=== PATIENT | female | born 1990 | race American Indian/Alaskan Native ===

== ENCOUNTER 2016-09-12 23:41 | Inpatient (IN) | payer OTHER, MEDICAID ==
[~2016-09-12 23:41] MED LIST: Betamethasone Acetate/Betamethasone Sod Phosphate 30 MG/5 ML MDV IM ONE
[2016-09-13] MEDS ORDERED: Lactated Ringers 1,000 ML IV SCH (11:15)
[2016-09-13] MEDS ORDERED: Magnesium Sulfate/Water 20 GM in Premix Bag 1 BAG IV SCH (11:15)
[2016-09-13] MEDS: Ferrous Sulfate 325 MG Tab PO SCH ×2 (14:09→22:06)
[2016-09-13] MEDS: Prenatal Multivitamin with Calcium/Folic Acid/Iron Tab PO SCH (14:09)
[2016-09-13] MEDS: Ibuprofen 800 MG Tab PO PRN (14:09)
[2016-09-13] MEDS: Docusate Sodium 100 MG Cap PO PRN (14:09)
--- NOTE | 2016-09-13 15:47 | PN ---
DATE: 09/13/2016 LOCATION: [facility]. HISTORY OF PRESENT ILLNESS: The patient is day 1 after a precipitous vaginal delivery of roughly 34 weeks' gestational age with preeclampsia. She is on magnesium seizure prophylaxis. Mom and baby are both doing well. She reports her lochia is minimal. PHYSICAL EXAMINATION: VITAL SIGNS: The patient is afebrile. Blood pressure 134 to 196/72 to 94. Last blood pressure was normal. Heart rate 57 to 74, respiratory rate 20 to 24. O2 sat 95% to 99%. Urine output was 1400 overnight, which is quite adequate. ABDOMEN: The patient's fundus is firm below the umbilicus. EXTREMITIES: No tenderness. No edema. LABORATORY DATA: Prior to delivery, white count was 11.3, hemoglobin 8.0; therefore, anemia, and platelets 312. She did have a magnesium level drawn this morning at 6 a.m., which was 4.5. Protein-creatinine ratio was 1.76, which is still elevated consistent with her preeclampsia. Her RPR is negative. HIV and hepatitis are still pending. GBS is only a preliminary report so far. ASSESSMENT AND PLAN: day 1, status post vaginal delivery at roughly 34 weeks' gestational age with preeclampsia on magnesium seizure prophylaxis. I do want to continue care, continue the magnesium at 2 g an hour as well as leave the Bryant in place for good urine output measurements. I will DC both of those at midnight if her blood pressures are still improving. I would like to start iron b.i.d. due to the anemia, also repeat a CBC in the morning. We will continue the magnesium levels at noon, 6 p.m., and at midnight tonight. But again, this is doing well and is still at [facility] with mother. MODL /[id number] BRONWYN
[2016-09-14] MEDS: Prenatal Multivitamin with Calcium/Folic Acid/Iron Tab PO SCH (09:06)
[2016-09-14] MEDS: Ferrous Sulfate 325 MG Tab PO SCH ×2 (09:06→18:00)
[2016-09-14] MEDS: Docusate Sodium 100 MG Cap PO PRN ×2 (09:06→22:43)
[2016-09-14] MEDS: Ibuprofen 800 MG Tab PO PRN ×2 (09:06→18:01)
--- NOTE | 2016-09-14 15:36 | PN ---
DATE: 09/14/2016 The patient is day 2, status post vaginal delivery approximately 34 weeks gestational age. The patient did have preeclampsia, she is now status post magnesium seizure prophylaxis. This morning her and baby are both doing well. Lochia is minimal. The patient's blood pressures through the night have ranged from 153 to 176 over 85 to 94 but last blood pressure was improved to 153/85. Urine output was good. Respiratory rate 16, O2 sat 99%. Heart rate 63 to 80, and temp 36.8. The patient's fundus is firm below the umbilicus. Extremities have no tenderness, no edema. The patient's pre-delivery hemoglobin was 8.0 and hemoglobin this morning is down to 7.5. White count 18.2, but she did receive 1 dose of betamethasone. Her platelets are normal at 364. Her highest magnesium level was 5.9 last night at 6 p.m., and then the magnesium was turned off roughly about 11 PM and her magnesium level is already dropping. ASSESSMENT AND PLAN: day 2, status post vaginal delivery at roughly 34 weeks gestational age with severe preeclampsia status post magnesium seizure prophylaxis. The patient's group B strep was negative. Hep B and HIV are still pending. She is rubella nonimmune. RPR is negative and we know her blood type is O positive. Due to continued elevated blood pressures and just discontinuing magnesium very late last night, I wanted to monitor through the day to make sure that her blood pressures normalized and she does not need blood pressure medication. The is with her and likely both will be discharged tomorrow. [facility] /[id number] MTDD
[2016-09-15] MEDS: Ibuprofen 800 MG Tab PO PRN (04:26)
--- NOTE | 2016-09-15 08:21 | PCM.DCSUM1 ---
Discharge Summary - Hospital Course Free Text/Narrative:: 26-year-old female presented in active labor at 34w5d (by ultrasound done earlier in the week). No care prior to the past week. She had been evaluated for elevated BP but had not yet developed preeclampsia. She delivered a viable female with Apgars of 7 and 8 at 1 and 5 minutes respectively. No complications were noted. - Discharge Data Discharge Date: 09/15/16 Discharge Disposition: Home, Self-Care 01 Condition: Good - Patient Summary/Data Operative Procedure(s) Performed: None Complications: None Consults: None Labs Pending at D/C: None Recommended Follow-up Testing/Procedures: None Planned Operative Procedure(s) after DC: None Hospital Course: Unremarkable course. Vaginal bleeding has been appropriate. She is tolerating a general diet, urinating and passing gas. She is bottle feeding. No clinical signs of anemia. - Patient Instructions Diet: Usual Diet as Tolerated Activity: As Tolerated, No Lifting Over 20 Pounds Driving: May Drive Today Showering/Bathing: May Shower Notify Provider of: Fever, Increased Pain, Nausea and/or Vomiting - Discharge Plan Home Medications: Home Meds Acetaminophen [Tylenol] 650 mg PO Q4H PRN #60 tablet 11/17/13 [Rx] Vit with Ca/FA/Iron [ Plus Iron] 1 each PO DAILY #30 tablet [Rx] metroNIDAZOLE [Flagyl] 500 mg PO Q12H 09/13/16 [History] Docusate Sodium [Colace] 100 mg PO BID PRN #0 cap 09/15/16 [Rx] Ferrous Sulfate 325 mg PO BIDMEALS tablet 09/15/16 [Rx] Ibuprofen [IJD: Ibuprofen] 800 mg PO Q8H PRN #0 tablet 09/15/16 [Rx] Referrals: Abrahan Alvarado MD [Physician] - (6 weeks) - Discharge Summary/Plan Comment DC Time >30 min.: No Discharge Summary/Plan Comment: Discharge home today. Follow-up in [address] Alvarado. - General Info Date of Service: 09/15/16 Subjective Update: PPD#2 after . Patient is doing well and has no complaints. Eating and drinking well. No dizziness or lightheadedness. Tolerating general diet. Urinating without difficulty. Passing gas. No concerns per patient or nursing. Functional Status: Reports: pain controlled, tolerating diet, ambulating, urinating. Denies: new symptoms - Review of Systems General: Reports: No Symptoms HEENT: Reports: no symptoms Pulmonary: Reports: no symptoms Cardiovascular: Reports: No Symptoms Gastrointestinal: Reports: No symptoms Genitourinary: Reports: no symptoms Musculoskeletal: Reports: no symptoms Skin: Reports: no symptoms Neurological: Reports: No Symptoms - Patient Data Weight - Most Recent: 111.13 kg Med Orders - Current: Current Medications Docusate Sodium (Colace) 100 mg PO BID PRN PRN Reason: Constipation Last Admin: 09/14/16 22:43 Dose: 100 mg Ferrous Sulfate (Ferrous Sulfate) 325 mg PO BIDMEALS [facility] Last Admin: 09/14/16 18:00 Dose: 325 mg Lactated Ringer's (Ringers, Lactated) 1,000 mls @ 100 mls/hr IV ASDIRECTED [facility] Magnesium Sulfate 20 gm/ (Premix) 500 mls @ 50 mls/hr IV .Q10H [facility] Last Admin: 09/13/16 12:21 Dose: 50 mls/hr Ibuprofen (Motrin) 800 mg PO Q8H PRN PRN Reason: Pain (moderate 4-6) Last Admin: 09/15/16 04:26 Dose: 800 mg Prenat Multivit/[place]/Iron/Folic Ac ( Plus Iron) 1 each PO WITHBREAKFAST [facility] Last Admin: 09/14/16 09:06 Dose: 1 each - Exam General: Reports: alert, oriented Lungs: Reports: Clear to auscultation, Normal respiratory effort Cardiovascular: Reports: Regular Rate, Regular Rhythm, No Murmurs Abdomen: Reports: soft, no tenderness, no distension, other (Uterus firm at 2 cm below umbilicus) Extremities: Reports: no edema Skin: Reports: warm, dry *Q Meaningful Use (DIS) - VTE *Q VTE Criteria *Q: - Stroke *Q Stroke Criteria *Q: - AMI *Q AMI Criteria *Q:
--- NOTE | 2016-09-15 09:50 | HP ---
The patient was admitted on 09/12/2016 at [facility]. HISTORY OF PRESENT ILLNESS: The patient is a 26-year-old, G6, P5, who was seen yesterday on Labor and Delivery. She presented with no care and was ruled out for labor and ruled out for preeclampsia. Ultrasound at that time put this patient at roughly 34 weeks' gestational age. The patient was started on labetalol 100 mg b.i.d. and was sent home with a 24-hour urine. The patient's labs were also done. The patient returned earlier today when NST was reactive and reassuring, blood pressure was normal now on labetalol 100 mg b.i.d. and the patient was sent home while we were awaiting the 24-hour urine results and then later on this evening, the patient did start to have severe contractions and arrived on Labor and Delivery in full labor, really unsure if she had lost fluid or not. No vaginal bleeding though, good movement. The 24-hour urine was originally reported as 274 mg of protein. However, while we were delivering the infant it was addended to be about 4.1 grams. Therefore, definitely preeclampsia. OBSTETRIC HISTORY: She has had five vaginal deliveries and had a history of preeclampsia. PAST MEDICAL HISTORY: Negative. PAST SURGICAL HISTORY: Negative. 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 ALLERGIES: The patient has no known drug allergies. LABORATORY DATA: labs that have come back so far yesterday, white count was 7.5, hemoglobin is low at 8.1, and the patient's blood type is O positive from previous . The patient is rubella nonimmune, RPR negative. Hep B, hep C, gonorrhea and chlamydia are still pending. GBS is still pending. UDS was negative yesterday. An ultrasound yesterday did show a cephalic , 34 weeks and 5 days. She did have an STEFANIE of 5.4, therefore, borderline oligohydramnios. The 24-hour urine was addended to read 4.1 grams. The patient arrived on Labor and Delivery and the labor nurse immediately checked her since she was quite uncomfortable. She was already 5-6 cm. The EFM tried to be applied and it was difficult to get a heart tracing, therefore I did apply an FSE. There were definitely heart tones but by that point in time, the patient was just an anterior lip, and because it was so hard to trace the infant we had the patient push past that anterior lip. Please see the delivery note for further details there. She was given 1 dose of betamethasone stat prior to delivery of the infant. ASSESSMENT AND PLAN: A 26-year-old, G6, P5, at roughly 34 weeks' gestational age, still awaiting labs. The patient was given betamethasone stat. We did have a precipitous vaginal delivery and then after I had the addended 24 hour urine, the patient was started on magnesium seizure prophylaxis at least for the first 24 hours . [facility] /[id number] BRONWYN
--- NOTE | 2016-09-15 10:50 | DEL ---
DATE: 09/12/2016 PREDELIVERY DIAGNOSIS: This is an individual with no care, seen yesterday and diagnosed with borderline oligohydramnios at roughly 34 weeks gestational age, also being ruled out for preeclampsia who was admitted in fulminant labor. PROCEDURE: Normal spontaneous vaginal delivery. FINDINGS: There was cephalic viable , 5 pounds 12 ounces. scores 7 and 9. No lacerations. ESTIMATED BLOOD LOSS: Within normal limits for vaginal delivery. PROCEDURE IN DETAIL: The patient had been seen earlier that day when she did turn in her 24 hour urine. NST at that time was reactive and reassuring and blood pressures had improved on labetalol 100 mg b.i.d. Therefore, we were still awaiting the 24-hour urine results when she arrived in Labor and Delivery in fulminant labor. The patient was already 5-6 cm by the labor and delivery nurse exam, very uncomfortable. She was given 1 dose of betamethasone. She was unfortunately still GBS unknown, but no time to start antibiotics. It was difficult to auscultate the heart tones, therefore scalp electrode was placed. The definitely still had a good heart beat. She progressed to complete within a few minutes and pushed the infant out with just 1 contraction. The cord was cut and clamped. The was handed off to the waiting Labor and Delivery nurses who were prepared for this possible premature infant. The cord blood was collected. The placenta was then delivered intact without any difficulty. The IV had been established by that time, therefore third stage Pitocin was given. There were no lacerations and the blood loss was normal for vaginal delivery. 's scores were 7 and 9 and the infant weighing 5 pounds 12 ounces. By the time we had delivered the patient, a 24- hour urine had come back addended at over 4 g of protein, therefore she was started on magnesium seizure prophylaxis due to her diagnosis of preeclampsia. Overall mom and baby were both doing well. [facility] /[id number] BRONWYN
== END 2016-09-15 10:00 | disposition home or self-care (01) | DRG 775 ==
LOC: DL.OB 23:41 → UNDOADMIN 09-13 08:00
PROVIDERS: ADMIT Obstetrics & Gynecology; ATTEND Obstetrics & Gynecology
PROC: 10E0XZZ Delivery of Products of Conception, External Approach (ICD-10-PCS; principal; 2016-09-13)
DX: O62.3 Precipitate labor (principal); O14.14 Severe pre-eclampsia complicating childbirth; O41.00X0 Oligohydramnios, unspecified trimester, not applicable or unspecified; Z3A.34 34 weeks gestation of pregnancy; Z37.0 Single live birth; O09.31 Supervision of pregnancy with insufficient antenatal care, first trimester; O09.32 Supervision of pregnancy with insufficient antenatal care, second trimester; O09.33 Supervision of pregnancy with insufficient antenatal care, third trimester
CPT/HCPCS: 36415; 51702; 82570; 83735; 84156; 85025; 85027; A9270-GY; J0702; J2590; J3475; J7120

== ENCOUNTER 2020-03-14 20:22 | Emergency (ER) | payer MEDICAID ==
[2020-03-14] MEDS ORDERED: Magnesium Citrate Solution 296 ML Bottle PO ONE (20:23)
[2020-03-14 20:32] VITALS: BP 146/78; PULSE 105
[2020-03-14] MEDS ORDERED: Iopamidol 612 MG/ML 100 ML Bottle IVPUSH ONE (20:57)
--- NOTE | 2020-03-14 21:02 | EDM.PDOC ---
<Antonio Cody - Last Filed: 03/14/20 22:43> ED HPI GENERAL MEDICAL PROBLEM - General Chief Complaint: Abdominal Pain Stated Complaint: LOWER RIGHT ABDOMINAL PAIN Time Seen by Provider: 03/14/20 20:45 Source of Information: Reports: Patient History Limitations: Reports: No Limitations - History of Present Illness INITIAL COMMENTS - FREE TEXT/NARRATIVE: Patient presents to the ED with complaints of right lower quadrant abdominal pain. Pain is described as sharp, currently rated 7/10. Onset was over the last couple days. Pain worsens with movement and improves with rest. 10/10 at its worst. There have been times when pain has not been noticeable. Seems to be better if she lies down. She has been able to work and get along with daily activities. Took a warm bath earlier which seemed to provide relief. She has not tried any OTC analgesics. Patient reports a period last week where she went four days without a bowel movement. She started taking fiber and has had a BM daily for the last few days including today. BMs have been soft, unformed, denies any blood in the stool. Last menstrual period was two weeks ago. She is sexually active, not on control or using any condoms. Grand multiparous with 8 children. She denies any vaginal bleeding. No urinary complaints, denies dysuria or hematuria. She does endorse some pain in the right flank. There has been no fever. No previous surgeries in the past. 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: Other (see below) (warm bath) Right Lower Abdomen Pain Score (Numeric/FACES): 6 - Related Data Allergies Allergy/AdvReac Type Severity Reaction Status Date / Time No Known Allergies Allergy Verified 03/14/20 20:27 Home Meds: Home Meds Magnesium Citrate [Citrate of Magnesia] 296 ml PO ONETIME #1 bottle 03/14/20 [Rx] Past Medical History - Past Health History Medical/Surgical History: Denies Medical/Surgical History HEENT History: Reports: None Cardiovascular History: Reports: Other (See Below) Other Cardiovascular History: Preeclampsia with prior Gastrointestinal History: Reports: None Genitourinary History: Reports: None NAPHTHALENE OPERATOR History: Reports: , Other (See Below) Other NAPHTHALENE OPERATOR History: History of preeclampisa and deliveries. 09/11/07- delivery at 36 weeks for preeclampsia with severe features. 02/18/10- term delivery, preeclampsia. 05/25/12- term delivery, preeclampsia. 11/15/13- term delivery. 12/01/14- 36w1d, preeclampsia with severe features. 09/12/16- 34w5d, preeclampsia with severe features. 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 - Recreational Drug Use Recreational Drug Use: Yes - Sexual History Sexual History: Reports: Sexually Active (no contraceptive use) ED ROS GENERAL - Review of Systems Review Of Systems: See Below Constitutional: Denies: Fever, Chills, Fatigue HEENT: Denies: Throat Pain Respiratory: Denies: Shortness of Breath, Cough Cardiovascular: Denies: Chest Pain, Palpitations GI/Abdominal: Reports: Abdominal Pain, Constipation. Denies: Diarrhea, Hematochezia, Melena, Nausea, Vomiting : Reports: Flank Pain. Denies: Dysuria, Hematuria Skin: Denies: Rash ED EXAM, GI/ABD - Physical Exam Exam: See Below Exam Limited By: No Limitations General Appearance: Alert, WD/WN, No Apparent Distress Eyes: Bilateral: Normal Appearance Throat/Mouth: Normal Voice, No Airway Compromise Head: Atraumatic, Normocephalic Respiratory/Chest: No Respiratory Distress, Lungs Clear, Normal Breath Sounds, No Accessory Muscle Use Cardiovascular: Normal Peripheral Pulses, Regular Rate, Rhythm, No Edema, No Murmur, No Rub GI/Abdominal Exam: Normal Bowel Sounds, Soft, No Distention, No Mass, Tender Back Exam: Normal Inspection, CVA Tenderness (R). No: CVA Tenderness (L), Paraspinal Tenderness, Vertebral Tenderness Extremities: Normal Inspection, No Pedal Edema Neurological: Alert, Oriented, Normal Cognition Psychiatric: Normal Affect, Normal Mood Skin Exam: Warm, Dry, Intact, Normal Color, No Rash Course - Radiology Interpretation Free Text/Narrative:: Per radiology report: Fluid in small bowel without bowel wall thickening. Probable degenerating right ovarian cyst. Normal appendix. No acute findings. CT Results Date: 03/14/20 CT Results Time: 20:56 - Re-Assessments/Exams Free Text/Narrative Re-Assessment/Exam: 03/14/20 21:00 Patient updated with lab results. Mild elevation in WBC, chronic anemia at baseline. Mildly elevated transaminases and alk phos, lactic acid WNL. 5-10 WBC on UA, nitrite negative. Urine sent for culture. No clear indication of etiology of patient's pain. Recommended CT scan of the abdomen and pelvis. Patient is agreeable with the plan. 03/14/20 22:[address] results. Small right ovarian cyst, large stool burden, negative appendix. Fluid within the bowel without bowel wall thickening. Patient reassured regarding no acute findings on abdominal imaging. She is relieved with this news. Discussed management of constipation with mag citrate. She feels comfortable discharging home at this time. Return precautions reviewed. Departure - Departure Time of Disposition: 22:00 Disposition: Home, Self-Care 01 Condition: Good Clinical Impression: Constipation Qualifiers: Constipation type: unspecified constipation type Qualified Code(s): K59.00 - Constipation, unspecified - Discharge Information *PRESCRIPTION DRUG MONITORING PROGRAM REVIEWED*: Not Applicable *COPY OF PRESCRIPTION DRUG MONITORING REPORT IN PATIENT SUZY: Not Applicable Prescriptions: Magnesium Citrate [Citrate of Magnesia] 296 ml PO ONETIME #1 bottle Instructions: Constipation, Adult, [id number] Forms: ED Department Discharge Additional Instructions: CT scan of your abdomen shows a large amount of stool. There is also a small cyst on your right ovary which may be contributing to your pain. You were prescribed magnesium citrate, which will help to clear your bowels. If you continue to have any issues, contact your primary care provider or return to the emergency room. Sepsis Event Note (ED) - Evaluation Sepsis Screening Result: No Definite Risk <Yamini Wilsoncesadiq Newberry - Last Filed: 03/15/20 03:23> ED EXAM, GI/ABD - Physical Exam GI/Abdominal Exam: Tender (RLQ) Course - Vital Signs Last Recorded V/S: Last Vital Signs Temp 99 F 03/14/20 20:27 Pulse 105 H 03/14/20 20:27 Resp 16 03/14/20 20:27 BP 146/78 H 03/14/20 20:27 Pulse Ox 100 03/14/20 20:27 - Orders/Labs/Meds Orders: Active Orders 24 hr Category Date Time Status CULTURE URINE [RM] Stat Lab 03/14/20 20:33 Received Labs: Laboratory Tests 03/14/20 03/14/20 03/14/20 Range/Units 20:33 20:33 20:47 WBC 13.1 H (5.0-10.0) 10^3/uL RBC 4.36 (4.2-5.4) 10^6/uL Hgb 9.9 L (12.0-16.0) g/dL Hct 32.8 L (37.0-47.0) % MCV 75.2 L D (80-100) fL MCH 22.7 L (27.0-34.0) pg MCHC 30.2 L (33.0-35.0) g/dL Plt Count 491 H D (150-450) 10^3/uL Neut % (Auto) 73.6 (42.2-75.2) % Lymph % (Auto) 17.0 L (20.5-50.1) % [place] % (Auto) 5.7 (2-8) % Eos % (Auto) 3.6 H (1.0-3.0) % Baso % (Auto) 0.1 (0.0-1.0) % Sodium (136-145) mmol/L Potassium (3.5-5.1) mmol/L Chloride (98-107) mmol/L Carbon Dioxide (21-32) mmol/L Anion Gap (7-13) mEq/L BUN (7-18) mg/dL Creatinine (0.55-1.02) mg/dL Est Cr Clr Drug Dosing mL/min Estimated GFR (MDRD) BUN/Creatinine Ratio (No establ ref range) Glucose (74-99) mg/dL Lactic Acid (0.4-2.0) mmol/L Calcium (8.5-10.1) mg/dL Total Bilirubin (0.2-1.0) mg/dL AST (15-37) U/L ALT (14-59) U/L Alkaline Phosphatase (46-116) U/L Total Protein (6.4-8.2) g/dL Albumin (3.4-5.0) g/dL Globulin Albumin/Globulin Ratio Urine Color Yellow (YELLOW) Urine Appearance Cloudy (CLEAR) Urine pH 6.0 (5.0-9.0) Ur Specific [place] 1.025 (1.005-1.030) Urine Protein Negative (NEGATIVE) Urine Glucose (UA) Negative (NEGATIVE) Urine Ketones Negative (NEGATIVE) Urine Occult Blood Negative (NEGATIVE) Urine Nitrite Negative (NEGATIVE) Urine Bilirubin Negative (NEGATIVE) Urine Urobilinogen 0.2 (0.2-1.0) mg/dL Ur Leukocyte Esterase Small H (NEGATIVE) Urine RBC 0-5 /HPF Urine WBC 5-10 H (0-5/HPF) /HPF Ur Epithelial Cells Few (NOT SEEN) /HPF Urine Bacteria Few (0-FEW/HPF) /HPF Urine Mucus Rare (NOT SEEN) /LPF Urine HCG, Qual Negative 03/14/20 03/14/20 Range/Units 20:47 20:47 WBC (5.0-10.0) 10^3/uL RBC (4.2-5.4) 10^6/uL Hgb (12.0-16.0) g/dL Hct (37.0-47.0) % MCV (80-100) fL MCH (27.0-34.0) pg MCHC (33.0-35.0) g/dL Plt Count (150-450) 10^3/uL Neut % (Auto) (42.2-75.2) % Lymph % (Auto) (20.5-50.1) % [place] % (Auto) (2-8) % Eos % (Auto) (1.0-3.0) % Baso % (Auto) (0.0-1.0) % Sodium 140 (136-145) mmol/L Potassium 4.4 (3.5-5.1) mmol/L Chloride 105 (98-107) mmol/L Carbon Dioxide 30 (21-32) mmol/L Anion Gap 9.4 (7-13) mEq/L BUN 21 H (7-18) mg/dL Creatinine 0.72 (0.55-1.02) mg/dL Est Cr Clr Drug Dosing 99.55 mL/min Estimated GFR (MDRD) > 60 BUN/Creatinine Ratio 29.2 (No establ ref range) Glucose 98 (74-99) mg/dL Lactic Acid 0.6 (0.4-2.0) mmol/L Calcium 8.7 (8.5-10.1) mg/dL Total Bilirubin 0.2 (0.2-1.0) mg/dL AST 40 H (15-37) U/L ALT 60 H (14-59) U/L Alkaline Phosphatase 119 H (46-116) U/L Total Protein 7.3 (6.4-8.2) g/dL Albumin 3.2 L (3.4-5.0) g/dL Globulin 4.1 Albumin/Globulin Ratio 0.78 Urine Color (YELLOW) Urine Appearance (CLEAR) Urine pH (5.0-9.0) Ur Specific [place] (1.005-1.030) Urine Protein (NEGATIVE) Urine Glucose (UA) (NEGATIVE) Urine Ketones (NEGATIVE) Urine Occult Blood (NEGATIVE) Urine Nitrite (NEGATIVE) Urine Bilirubin (NEGATIVE) Urine Urobilinogen (0.2-1.0) mg/dL Ur Leukocyte Esterase (NEGATIVE) Urine RBC /HPF Urine WBC (0-5/HPF) /HPF Ur Epithelial Cells (NOT SEEN) /HPF Urine Bacteria (0-FEW/HPF) /HPF Urine Mucus (NOT SEEN) /LPF Urine HCG, Qual Meds: Medications Discontinued Medications Generic Name Dose Route Start Last Admin Trade Name Freq PRN Reason Stop Dose Admin Sodium Chloride 1,000 mls @ 150 mls/hr 03/14/20 21:05 Normal Saline IV 03/15/20 03:44 .BOLUS ONE Sodium Chloride 1,000 mls @ 999 mls/hr 03/14/20 21:06 Normal Saline IV 03/14/20 22:06 .BOLUS ONE Iopamidol 100 ml 03/14/20 20:57 03/14/20 21:26 Isovue-300 (61%) IVPUSH 03/14/20 20:58 100 ml ONETIME ONE Administration Magnesium Citrate Confirm 03/14/20 21:49 Citrate Of Magnesia Administered 03/14/20 21:50 Dose 296 ml .ROUTE .STK-MED ONE - Re-Assessments/Exams Free Text/Narrative Re-Assessment/Exam: 03/15/20 03:23 I was present with resident during history and exam. I discussed the case with resident and agree with the findings and plan as documented in the residents note. Sepsis Event Note (ED) - Focused Exam Vital Signs: Vital Signs Temp Pulse Resp BP Pulse Ox 03/14/20 20:27 99 F 105 H 16 146/78 H 100 - My Orders Last 24 Hours: My Active Orders 03/14/20 20:33 CULTURE URINE [RM] Stat - Assessment/Plan Last 24 Hours: My Active Orders 03/14/20 20:33 CULTURE URINE [RM] Stat
[2020-03-14] MEDS ORDERED: Sodium Chloride 0.9% 1,000 ML IV ONE ×2 (21:05→21:06)
[2020-03-14 21:11] LABS: ANION GAP 9.4 mEq/L (7-13); CHLORIDE,CL 105 mmol/L (98-107); SODIUM,NA 140 mmol/L (136-145)
--- NOTE | 2020-03-14 21:40 | CT ---
PROCEDURE INFORMATION: Exam: CT Abdomen And Pelvis With Contrast Exam date and time: 03/14/2020 9:11 PM Age: 29 years old Clinical indication: Other: Rlq pain wbc [id number] TECHNIQUE: Imaging protocol: Computed tomography of the abdomen and pelvis with intravenous contrast. Sagittal and coronal reformatted images were created and reviewed. Radiation optimization: All CT scans at this facility use at least one of these dose optimization techniques: automated exposure control; mA and/or kV adjustment per patient size (includes targeted exams where dose is matched to clinical indication); or iterative reconstruction. Contrast material: ISOVUE 300; Contrast volume: 100 ml; Contrast route: INTRAVENOUS (IV); COMPARISON: No relevant prior studies available. FINDINGS: Lungs: Visualized lungs are clear. Pleural space: No pleural effusion. Heart: Visualized portions of the heart are unremarkable. Liver: The liver is unremarkable. Gallbladder and bile ducts: The gallbladder is unremarkable. No biliary ductal dilatation. Pancreas: The pancreas is unremarkable. No pancreatic ductal dilatation. Spleen: The spleen is unremarkable. Adrenals: The right and left adrenal glands are unremarkable. Kidneys and ureters: The right and left kidneys are unremarkable. The right and left ureters are unremarkable. Stomach and bowel: Ingested contents in the stomach. Fluid within the small bowel without evidence of bowel wall thickening. No acute abnormality in the colon. Appendix: The appendix is visualized and is unremarkable. No findings to suggest acute appendicitis. Intraperitoneal space: Small amount of free fluid in the pelvis. No free intraperitoneal air. No loculated fluid collections to suggest an abscess. 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 No evidence for aortic aneurysm or aortic dissection. Hepatic veins, portal veins, splenic vein, and SMV are patent. Lymph nodes: No lymphadenopathy. Urinary bladder: The bladder is incompletely filled, which can limit evaluation. No focal abnormality in the bladder however. Reproductive: Right ovarian cyst with an enhancing wall, possibly representing a degenerating ovarian cyst. This measures 3.2 x 2.4 x 2.2 cm (series 4, image 69 and series 2, image 117). The uterus is unremarkable. The left ovary is unremarkable. Bones/joints: No acute fracture. Multiple bone islands in the visualized skeleton. Soft tissues: The extra-abdominal soft tissues are unremarkable. IMPRESSION: 1. Fluid within the small bowel without evidence of bowel wall thickening. This may reflect viral gastroenteritis in the appropriate clinical situation. 2. Probable degenerating cyst in the right ovary. 3. Small amount of free fluid in the pelvis. 4. Incidental/nonacute findings are listed in the report.
[2020-03-14] MEDS ORDERED: Magnesium Citrate Solution 296 ML Bottle ONE (21:49)
== END 2020-03-14 22:15 | disposition home or self-care (01) ==
LOC: DL.ED 20:22
DX: K59.00 Constipation, unspecified (principal); F17.200 Nicotine dependence, unspecified, uncomplicated; D72.829 Elevated white blood cell count, unspecified; Z79.899 Other long term (current) drug therapy
CPT/HCPCS: 36415; 74177; 80053; 81001; 81025; 83605; 85025; 87086; 99284; A9270; Q9967; 99283

== ENCOUNTER 2022-11-05 09:59 | Emergency (ER) | payer MEDICAID ==
[2022-11-05 09:45] VITALS: BP 153/85; PULSE 103
[2022-11-05 09:53] LABS: BASOPHILS PERCENT AUTO 0.2 % (0.0-1.0); EOSINOPHILS PERCENT AUTO 4.5 % (1.0-3.0); HEMATOCRIT 29.7 % (37.0-47.0); HEMOGLOBIN 8.7 g/dL (12.0-16.0); LYMPHOCYTES PERCENT AUTO 23.2 % (20.5-50.1); MEAN CORPUSCULAR HGB CONC 29.3 g/dL (33.0-35.0); MONOCYTES PERCENT AUTO 9.3 % (2-8); NEUTROPHILS PERCENT AUTO 62.8 % (42.2-75.2); PLATELET COUNT,PLT 537 10^3/uL (150-450); RED BLOOD CELL COUNT 4.57 10^6/uL (4.2-5.4)
[~2022-11-05 09:59] MED LIST changes: -Betamethasone Acetate/Betamethasone Sod Phosphate 30 MG/5 ML MDV IM ONE; +Sodium Chloride 0.9% 1,000 ML IV ONE
[2022-11-05 10:18] LABS: ALANINE AMINOTRANSFERASE,ALT 117 U/L (14-59); ALBUMIN 2.9 g/dL (3.4-5.0); ALKALINE PHOSPHATASE 133 U/L (46-116); ANION GAP 11.4 mEq/L (7-13); ASPARTATE AMNIOTRANSFERASE,AST 84 U/L (15-37); BILIRUBIN TOTAL 0.5 mg/dL (0.2-1.0); BLOOD UREA NITROGEN,BUN 10 mg/dL (7-18); BUN/CREATININE RATIO 14.7 (No establ ref range); CALCIUM 7.6 mg/dL (8.5-10.1); CARBON DIOXIDE,CO2 26 mmol/L (21-32); CHLORIDE,CL 107 mmol/L (98-107); CREATININE 0.68 mg/dL (0.55-1.02); EST CRCL DRUG DOSING (CG) 102.56 mL/min; GLUCOSE RANDOM 107 mg/dL (70-99); POTASSIUM,K 3.4 mmol/L (3.5-5.1); PROTEIN TOTAL,TP 7.1 g/dL (6.4-8.2); SODIUM,NA 141 mmol/L (136-145)
[2022-11-05 10:32] LABS: APPEARANCE,URINE SLIGHTLY CLOUDY (CLEAR); BILIRUBIN,URINE NEGATIVE (NEGATIVE); COLOR,URINE DARK YELLOW (YELLOW); GLUCOSE,URINE NEGATIVE (NEGATIVE); KETONES,URINE NEGATIVE (NEGATIVE); LEUKOCYTE ESTERASE,URINE SMALL (NEGATIVE); NITRITE,URINE POSITIVE (NEGATIVE); OCCULT BLOOD,URINE TRACE-INTACT (NEGATIVE); PROTEIN,URINE 30 (NEGATIVE)
[2022-11-05 10:33] LABS: A/G RATIO 0.69; C-REACTIVE PROTEIN < 0.2 mg/dL (0.0-0.9); ESTIMATED GFR 119 mL/min (>=60); ETHANOL BLOOD MEDICAL < 3 mg/dL (0)
[2022-11-05 10:36] LABS: PERCENT FE SATURATION 3.1 % (20.0-50.0)
[2022-11-05 10:38] LABS: AMPHETAMINES,URINE POSITIVE (NEGATIVE); BARBITURATES,URINE NEGATIVE (NEGATIVE); BENZODIAZEPINE,URINE NEGATIVE (NEGATIVE); MDMA (ECSTASY), URINE NEGATIVE (NEGATIVE); METHADONE,URINE NEGATIVE (NEGATIVE); METHAMPHETAMINES,URINE POSITIVE (NEGATIVE); OPIATES,URINE NEGATIVE (NEGATIVE); OXYCODONE,URINE NEGATIVE (NEGATIVE); PHENCYCLIDINE,URINE NEGATIVE (NEGATIVE); TCA,URINE NEGATIVE (NEGATIVE)
[2022-11-05 10:45] LABS: BACTERIA,URINE MANY /HPF (0-FEW/HPF); EPITHELIAL CELLS,URINE MODERATE /HPF (NOT SEEN); MUCUS,URINE NOT SEEN /LPF (NOT SEEN); RBC,URINE 0-5 /HPF (0-5)
== END 2022-11-05 10:50 | disposition home or self-care (01) ==
LOC: DL.ED 09:59
DX: F41.9 Anxiety disorder, unspecified (principal); D50.9 Iron deficiency anemia, unspecified; F15.10 Other stimulant abuse, uncomplicated
CPT/HCPCS: 36415; 80053; 80305; 80307; 81001; 82728; 83540; 83550; 84484; 85025; 85379; 86140; 87086; 87088; 87186; 93005; 93010; 96360; 99284; 99285; J7030

== ENCOUNTER 2025-02-23 16:28 | Emergency (ER) | payer MEDICAID ==
[2025-02-23 16:49] LABS: BASOPHILS PERCENT AUTO 0.1 % (0.0-1.0); EOSINOPHILS PERCENT AUTO 0.7 % (1.0-3.0); LYMPHOCYTES PERCENT AUTO 23.3 % (20.5-50.1); MONOCYTES PERCENT AUTO 4.7 % (2-8); NEUTROPHILS PERCENT AUTO 71.2 % (42.2-75.2); PLATELET COUNT,PLT 391 10^3/uL (150-450); RED BLOOD CELL COUNT 4.53 10^6/uL (4.2-5.4); WHITE BLOOD CELL COUNT,WBC 7.5 10^3/uL (5.0-10.0)
[2025-02-23 17:03] LABS: BLOOD UREA NITROGEN,BUN 4.0 mg/dL (7-18); CARBON DIOXIDE,CO2 25.0 mmol/L (21-32); CHLORIDE,CL 104.0 mmol/L (98-107); CREATININE 0.68 mg/dL (0.55-1.02); EST CRCL DRUG DOSING (CG) 113.36 mL/min; ESTIMATED GFR 117.0 mL/min (>=60); GLUCOSE RANDOM 120.0 mg/dL (70-99); POTASSIUM,K 3.0 mmol/L (3.5-5.1); SODIUM,NA 139.0 mmol/L (136-145)
[2025-02-23] MEDS: Potassium Chloride 10 MEQ Tab.ER PO ONE (17:24)
[2025-02-23 17:56] VITALS: BP 148/91; PULSE 100
== END 2025-02-23 17:57 | disposition home or self-care (01) ==
LOC: DL.ED 16:28
DX: T40.411A Poisoning by fentanyl or fentanyl analogs, accidental (unintentional), initial encounter (principal); F17.200 Nicotine dependence, unspecified, uncomplicated
CPT/HCPCS: 36415; 80048; 85025; 96374; 99283; 99284-25; A9270-GY; J2312

== ENCOUNTER 2025-02-26 05:59 | Emergency (ER) | payer MEDICAID ==
[2025-02-26] MEDS: Ketorolac 30 MG/ML SDV IM ONE (06:01)
[2025-02-26 06:26] LABS: BASOPHILS PERCENT AUTO 0.3 % (0.0-1.0); EOSINOPHILS PERCENT AUTO 1.9 % (1.0-3.0); LYMPHOCYTES PERCENT AUTO 25.6 % (20.5-50.1); MONOCYTES PERCENT AUTO 8.3 % (2-8); NEUTROPHILS PERCENT AUTO 63.9 % (42.2-75.2); PLATELET COUNT,PLT 350 10^3/uL (150-450); RED BLOOD CELL COUNT 4.18 10^6/uL (4.2-5.4); WHITE BLOOD CELL COUNT,WBC 7.4 10^3/uL (5.0-10.0)
[2025-02-26 06:38] LABS: HCG QUALITATIVE,SERUM POSITIVE (NEGATIVE)
[2025-02-26 06:48] LABS: ALANINE AMINOTRANSFERASE,ALT 109 U/L (14-59); ASPARTATE AMNIOTRANSFERASE,AST 119 U/L (15-37); BILIRUBIN TOTAL 0.5 mg/dL (0.2-1.0); BLOOD UREA NITROGEN,BUN 10 mg/dL (7-18); CARBON DIOXIDE,CO2 24 mmol/L (21-32); CHLORIDE,CL 104 mmol/L (98-107); CREATININE 0.64 mg/dL (0.55-1.02); EST CRCL DRUG DOSING (CG) 106.95 mL/min; GLUCOSE RANDOM 101 mg/dL (70-99); POTASSIUM,K 3.8 mmol/L (3.5-5.1); PROTEIN TOTAL,TP 7.0 g/dL (6.4-8.2); SODIUM,NA 138 mmol/L (136-145)
[2025-02-26 06:49] LABS: A/G RATIO 0.56; ESTIMATED GFR 119 mL/min (>=60)
[2025-02-26 07:41] VITALS: BP 159/91; PULSE 87
== END 2025-02-26 07:55 | disposition home or self-care (01) ==
LOC: DL.ED 05:59
DX: O99.891 Other specified diseases and conditions complicating pregnancy (principal); R07.89 Other chest pain; O9A.211 Injury, poisoning and certain other consequences of external causes complicating pregnancy, first trimester; T40.411A Poisoning by fentanyl or fentanyl analogs, accidental (unintentional), initial encounter; Z3A.00 Weeks of gestation of pregnancy not specified
CPT/HCPCS: 36415; 71045; 80053; 84484; 84702; 84703; 85025; 93005; 93010; 96372; 99284; 99285; J1885

== ENCOUNTER 2025-04-25 05:55 | Emergency (ER) | payer MEDICAID ==
[2025-04-25 06:45] VITALS: BP 156/78; PULSE 77
== END 2025-04-25 06:35 | disposition home or self-care (01) ==
LOC: DL.ED 05:55
DX: F41.9 Anxiety disorder, unspecified (principal)
CPT/HCPCS: 99283